=== PATIENT | female | born 2000 | race Caucasian/White ===

== ENCOUNTER 2022-01-07 23:44 | Emergency (ER) | payer OTHER ==
[~2022-01-07] VITALS: Ht 160 cm; Wt 81.6 kg
[2022-01-07 23:59] VITALS: BP 113/56
[2022-01-08 01:06] VITALS: BP 113/56
== END 2022-01-08 01:06 | disposition home or self-care (01) ==
LOC: MED 23:44
DX: N93.0 Postcoital and contact bleeding (principal)
CPT/HCPCS: 76856; 99284; Q0092